=== PATIENT | male | born 1995 | race Caucasian/White ===

== ENCOUNTER 2017-10-07 03:00 | Emergency (ER) | payer OTHER ==
--- NOTE | 2017-10-07 03:03 | EDPHY ---
H & P Time Seen by Provider: 10/07/17 03:03 HPI/ROS: HPI CHIEF COMPLAINT: Fall, head laceration HISTORY OF PRESENT ILLNESS: Patient 22-year-old male who presents emergency room after he had a fall this evening. Patient states he had alcohol to drink this evening 4-5 beers he also smoked marijuana he got up suddenly got lightheaded and fell backwards with head strike. He sustained a left occiput vertically oriented 3 cm laceration. He does complain of a headache. Denies neck pain. Denies chest pain or shortness of breath. He thinks he was dehydrated drank too much alcohol and fell backwards. Past Medical History: No significant medical history Past Surgical History: No significant surgical history Social History: Alcohol this evening, marijuana as well. Denies other illicit drugs. Family History: Noncontributory ROS REVIEW OF SYSTEMS: A comprehensive 10 point review of systems is otherwise negative aside from elements mentioned in the history of present illness. Exam Constitutional appears well nontoxic triage nursing summary reviewed, vital signs reviewed, awake/alert. Eyes normal conjunctivae and sclera, EOMI, PERRLA. HENT head/neck neck exam no midline cervical spine pain or step-offs, head exam shows left occiput laceration vertically oriented 3-4 cm. Otherwise atraumatic exam , moist mucus membranes, no epistaxis, neck supple/ no meningismus, no raccoon eyes. Respiratory clear to auscultation bilaterally, normal breath sounds, no respiratory distress, no wheezing. Cardiovascular rate normal, regular rhythm, no murmur, no edema, distal pulses normal. Gastrointestinal soft, non-tender, no rebound, no guarding, normal bowel sounds, no distension, no pulsatile mass. Genitourinary no CVA tenderness. Musculoskeletal no midline vertebral tenderness, full range of motion, no calf swelling, no tenderness of extremities, no meningismus, good pulses, neurovascularly intact. Skin pink, warm, & dry, no rash, skin atraumatic. Neurologic awake, alert and oriented x 3, AAOx3, moves all 4 extremities equally, motor intact, sensory intact, CN II-XII intact, normal cerebellar, normal vision, normal speech. Psychiatric normal mood/affect. Heme/Lymph/Immune no lymphadenopathy. Differential Diagnosis: Includes but is not limited to in a particular order vasovagal syncope, orthostatic syncope, dehydration, alcohol intoxication marijuana intoxication, closed head injury, intracranial bleed, subdural, traumatic subarachnoid, occipital laceration Medical Decision Making: Plan for this patient will proceed with CT head without contrast make sure does not have any acute traumatic injury, will repair his laceration as well he will need apolinar, p.o. Fluids an EKG. Re-evaluation: Laceration Repair Procedure: Verbal Consent was obtained, Under sterile conditions, The patient had lidocaine with epinephrine used approximately 5ccs to local anesthetize the left occiput 3CM vertical Laceration. The wound was copiously irrigated with sterile fluid, the wound was explored for foreign bodies there were none visualized, the wound was explored with a sterile glove to the base. There are no deep structures involved, including no arterial injury. FIVE APOLINAR were placed in this patient's laceration. He had good close approximation of the wound edges. He Tolerated this well. CT head without contrast for trauma negative for acute traumatic injury called to me by Dr. Iverson. EKG interpretation by me on record in [facility] system. Impression time of EKG 3:13 a.m., sinus rhythm rate of [address] elevation no ST depression, no signs of cardiac arrhythmia no WPW or Brugada. Patient understands have apolinar removed in 7 days. Return precautions discussed. He ambulated well throughout the emergency room without any difficulty. Understands stay well-hydrated drink lots of fluids. Source: Patient Constitutional: Initial Vital Signs Temperature (C) 36.7 C 10/07/17 03:02 Heart Rate 75 10/07/17 03:02 Respiratory Rate 16 10/07/17 03:02 Blood Pressure 103/46 L 10/07/17 03:02 O2 Sat (%) 96 10/07/17 03:02 O2 Delivery Mode Room Air Allergies/Adverse Reactions: No Known Allergies Allergy (Unverified 10/07/17 03:06) Home Medications: Medication Instructions Recorded Levothyroxine 10/07/17 Departure - Departure Disposition: Home, Routine, Self-Care Clinical Impression: Laceration of head Qualifiers: Encounter type: initial encounter Location of open wound of head: scalp Foreign body presence: without foreign body Qualified Code(s): S01.01XA - Laceration without foreign body of scalp, initial encounter Condition: Good Instructions: Laceration (ED), Staple Care (ED) Additional Instructions: 1. Drink lots of fluids today and stay well-hydrated. 2. Refrain from smoking marijuana drinking alcohol. 3. Your apolinar need to be removed in 7 days. Referrals: NONE *PRIMARY CARE P,. [Primary Care Provider] - As per Instructions
--- NOTE | 2017-10-07 03:14 | CPEKG ---
Heart Rate: 60 RR Interval: 1000 P-R Interval: 160 QRSD Interval: 114 QT Interval: 400 QTC Interval: 400 P Lincoln: 59 QRS Lincoln: 79 T Wave Lincoln: 33 EKG Severity - ABNORMAL ECG - EKG Impression: SINUS RHYTHM EKG Impression: NONSPECIFIC INTRAVENTRICULAR CONDUCTION DELAY Electronically Signed By: Elizabet Bryant 08-Oct-2017 12:26:56
[2017-10-07 04:15] VITALS: BP 107/72
== END 2017-10-07 04:15 | disposition home or self-care (01) ==
PROC: 0HQ0XZZ Repair Scalp Skin, External Approach (ICD-10-PCS; principal; 2017-10-07)
DX: S01.01XA Laceration without foreign body of scalp, initial encounter (principal); W01.198A Fall on same level from slipping, tripping and stumbling with subsequent striking against other object, initial encounter; Y99.8 Other external cause status; Y93.89 Activity, other specified